=== PATIENT | male | born 1965 | race Two or more races ===

== ENCOUNTER 2018-05-05 17:26 | Emergency (ER) | payer MEDICAID ==
[~2018-05-05] VITALS: Ht 175.3 cm; Wt 70.0 kg
[~2018-05-05 17:26] MED LIST: NO HOME MEDS
[2018-05-05 17:47] VITALS: BP 159/95
[2018-05-05] MEDS ORDERED: ondansetron 4mg rapidly disintigrating tab PO ONE (18:45)
[2018-05-05] MEDS ORDERED: HYDROcodone/acetaminophen 10/325mg tab PO ONE (18:45)
[2018-05-05] MEDS ORDERED: TETanus/Pertussis (Acell)/Diphther VAC/PF (Tdap-Adult) 0.5ml syringe IM ONE (19:00)
[2018-05-05] MEDS ORDERED: NAPR-56 PO (19:17)
--- NOTE | 2018-05-05 19:34 | NUR ---
CLEANED PT'S WOUNDS ON HANDS, FLUSHED WITH SODIUM CHLORIDE AND SCRUBBED PLACED BAND AIDS OVER WOUNDS
== END 2018-05-05 19:51 | disposition home or self-care (01) ==
LOC: ER 17:26
DX: S02.2XXA Fracture of nasal bones, initial encounter for closed fracture (principal); S01.21XA Laceration without foreign body of nose, initial encounter; R07.89 Other chest pain; Z98.890 Other specified postprocedural states; V19.88XA Pedal cyclist (driver) (passenger) injured in other specified transport accidents, initial encounter; Y93.55 Activity, bike riding; Y92.413 State road as the place of occurrence of the external cause; Y99.9 Unspecified external cause status
CPT/HCPCS: 12011; 71045; 90471; 90715; 99283